=== PATIENT | male | born 1995 | race Caucasian/White ===

== ENCOUNTER 2017-03-12 00:33 | Emergency (ER) | payer OTHER ==
--- NOTE | 2017-03-12 01:27 | ERNOTE ---
Upper Extremity HPI - General Extremities Pain Location: hand: right Time Seen by Provider: 03/12/17 01:25 Source: patient, family Exam Limitations: intoxication - pt asked the same question over and over - Immun/Allergies/Home Medications Immunizations: IMMUNIZATION HX Immunizations Up to Date Yes History of Influenza Vaccine No Hx Pneumococcal Vaccination No Allergies/Adverse Reactions: Allergies Allergy/AdvReac Type Severity Reaction Status Date / Time amoxicillin [Amoxicillin] Allergy Mild Hives Verified 02/29/16 04:35 Home Medications: HOME MEDICATIONS Levothyroxine Sodium [Synthroid] 50 mcg PO DAILY 11/14/15 [Last Taken Unknown] Alprazolam [Alprazolam Xr] 1 mg PO DAILY 02/29/16 [Last Taken Unknown] HYDROcodone/ACETAMINOPHEN [Hydrocodon-Acetaminophen 5-325] 1 - 2 each PO QID PRN #20 tablet 03/12/17 [Last Taken Unknown] - History of Present Illness Occurred: just prior to arrival Location of Incident: other Severity: moderate Method of Injury: Reports: direct blow Loss of Consciousness: Reports: no loss of consciousness Other Injuries: Reports: none Review of Systems - Review of Systems Constitutional: Present: no symptoms reported EYE: Present: no symptoms reported ENT: Present: no symptoms reported Respiratory: Present: no symptoms reported Cardiology: Present: no symptoms reported Musculoskeletal: Present: See HPI Skin: Present: See HPI Neurological: Absent: numbness, tingling Endocrine: Present: no symptoms reported Hematologic/Lymphatic: Present: no symptoms reported Psych: Present: no symptoms reported - Patient's Past Medical History Patient History - Medical: Anxiety, Depression, GERD Patient History - Cardiac/Respiratory: No pertinent hx Patient History - Cancer: No Hx of Cancer Patient History - Surgical Procedures: No surgical history Patient History - Other: None - Family History Father Family History - Medical: Depression Family History - Cardiac/Respiratory: History Unknown - Social History Living Situations: home Abuse History: No History of abuse Psych History: Hx of Anxiety, Hx of Depression Smoking Status: Never smoker Do you dip or chew tobacco: Yes Patient requests Smoking Cessation Consult: No Initiate information on Smoking Cessation: No Alcohol Use: occasionally Drug Use: none - Immunizations Immunizations Up to Date: Yes Hx Pneumococcal Vaccination: No History of Influenza Vaccine: No Physical Exam - Physical Exam General Appearance: Present: wd/wn, alert, no apparent distress Respiratory: Present: no respiratory distress Extremity Exam: Present: normal except - - right dorsal hand swollen. good ROM of fingers. Able to make a complete fist Neurological Exam: Present: alert, oriented, normal mood/affect, no motor/ sensory deficits Skin Exam: Present: normal color, warm/dry, other - 2 cm laceration longitudinal between the right 4th & 5th MCPJ. Superficial just into sub-q, easily approximated Lymphatic Exam: Present: no adenopathy ED Progress - Vital Signs Vital Signs: Vital Signs 03/12/17 00:37 Temperature 36.6 C Pulse Rate 88 Respiratory 18 Rate Blood Pressure 144/84 O2 Sat by Pulse 97 Oximetry - X-Ray X-Ray #1 X-Ray: hand Interpretation: Interp. by me X-ray Comments: Mildly displaced dorsally angulated mid shaft fracture of the right 4th MC - Progress/Reassessment Chief Complaint: Upper Extremity Injury/Problem Progress Note-Subjective: 03/12/17 01:[address] Bennett. He suggests a splint and for patient to call the office in the morning for appointment next week. Procedures Right Hand Date and Time: Laceration repair of right dorsal hand Length of Repair/Wound (cm): 2 Wound's Depth/Shape: into subcutaneous, linear Wound Explored: clean Wound Intervention: irrigated w/saline Distal NVT: neuro/vasc intact Wound Repaired With: Dermabond Estimated blood loss (ml): 2 Wound Dressing: splint applied - by nursing staff Complications: Pt elijah procedure well Departure Clinical Impression: Fracture, metacarpal shaft Qualifiers: Encounter type: initial encounter Metacarpal bone: fourth Fracture type: closed Fracture alignment: displaced Laterality: right Qualified Code(s): S62.324A - Displaced fracture of shaft of fourth metacarpal bone, right hand, initial encounter for closed fracture - Departure Disposition: Home Follow Up Needed Condition: Good Instructions: Metacarpal Fracture, [id number] Additional Instructions: call orthopedics in the morning, they will make you an appointment for casting the hand Referrals: Ayaan Coronel MD [Primary Care Provider] - Se Bennett MD [Staff Physician] - Prescriptions: HYDROcodone/ACETAMINOPHEN [Hydrocodon-Acetaminophen 5-325] 1 - 2 each PO QID PRN #20 tablet PRN Reason: Pain
--- OUTSIDE RECORDS SUMMARY | 2017-03-12 01:30 | XMS REPORT | Continuity of Care Document ---
:1995 Author Organization [facility] ([facility]) Address [address] [place] [address] Phone [phone] Care Team Providers Name Role Phone Provider, No-Primary Care Primary Care Provider Unavailable Source Comments This disclosure is being made pursuant to the Care Everywhere program, applicable federal and state laws, and may not contain all informaitonavailable regarding this patient.[facility] ([facility]) Active Allergies and Adverse Reactions Not on File Current Medications Not on file Active Problems Not on file Social History Tobacco Use Types Packs/Day Years Used Date Never Assessed Plan of Care Health Maintenance Due Date Last Done Comments Hepatitis B Vaccine (1 of 3 - Primary Series) 1995 HPV Vaccine (1 of 3 - Male 3 Dose Series) 2006 Tdap Vaccine 2006 Meningococcal Vaccine (1 of 1) 2011 Lipid Disorder Screening 2013 MMR Vaccine 2013 Td Vaccine 2013 Varicella Vaccine (1 of 2 - Adult - No Evidence of 2013 Immunity) Influenza Vaccine: Seasonal (#1) 06/03/2016 Results from Last 3 Months Not on file
[2017-03-12] MEDS ORDERED: HYDROcodone/ACETAMINOPHEN 1 EACH TABLET PO ONE (01:52)
[2017-03-12] MEDS ORDERED: HYDROcodone/ACETAMINOPHEN 1 EACH TABLET ONE (01:53)
[2017-03-12 02:36] VITALS: BP 141/91
== END 2017-03-12 02:00 | disposition home or self-care (01) ==
LOC: ER 00:33
PROC: 0JQJ0ZZ Repair Right Hand Subcutaneous Tissue and Fascia, Open Approach (ICD-10-PCS; principal; 2017-03-12)
PROC: 2W3EX1Z Immobilization of Right Hand using Splint (ICD-10-PCS; 2017-03-12)
DX: S62.324A Displaced fracture of shaft of fourth metacarpal bone, right hand, initial encounter for closed fracture (principal)

== ENCOUNTER 2017-03-20 07:47 | Day surgery (SDC) | payer OTHER ==
[~2017-03-20 07:47] MED LIST: ACETAMINOPHEN 500 MG TABLET PO PRN; HYDROmorphone HCL 2 MG/ML VIAL IV PRN; MAG HYDROX/ALUMINUM HYD/SIMETH 30 ML UDC PO PRN; MAGNESIUM HYDROXIDE 30 ML UDC PO PRN; ONDANSETRON HCL/PF 2 MG/ML VIAL IV PRN; PROMETHAZINE HCL 25 MG in DEXTROSE 5 % IN WATER 50 ML IV PRN; RINGERS SOLUTION,LACTATED 1,000 ML IV PRN; ZOLPIDEM TARTRATE 5 MG TABLET PO PRN; ceFAZolin SODIUM 1 GM VIAL IV PRN; diphenhydrAMINE HCL 50 MG/ML VIAL IV PRN; oxyCODONE HCL/ACETAMINOPHEN 1 TAB TABLET PO PRN
--- OUTSIDE RECORDS SUMMARY | 2017-03-20 07:50 | XMS REPORT | Continuity of Care Document ---
:1995 Author Organization [facility] ([facility]) Address [address] [place] [address] Phone [phone] Care Team Providers Name Role Phone Provider, No-Primary Care Primary Care Provider Unavailable Source Comments This disclosure is being made pursuant to the Care Everywhere program, applicable federal and state laws, and may not contain all informaitonavailable regarding this patient.[facility] ([facility]) Active Allergies and Adverse Reactions Not on [...]
[2017-03-20] MEDS ORDERED: RINGERS SOLUTION,LACTATED 1,000 ML IV ONE ×2 (08:02→09:36)
--- NOTE | 2017-03-20 08:05 | PN ---
Progess Note - Interim Narrative: 03/20/17 07:58 H&P Update Patient seen and examined in pre-op today. He sustained a ring finger metacarpal shaft fracture while hitting a punching bag at a bar. He also sustained a ~ 1.5 laceration of the 4th dorsal webspace that was irrigated and closed with dermabond when he was seen in the ED. On exam, he has diffuse swelling over the dorsum of the hand and tenderness directly over the metacarpal shaft with palpable dorsal angulation deformity. When making a fist he has slight malrotation of the ring finger. He has a ~1.5 cm laceration over the dorsal 3rd webspace that is clean without erythema or drainage. He has brisk capillary refill and full sensation in the hand and all fingers. I counseled him about treatment options today. He has an unstable fracture of the ring metacarpal shaft with unacceptable sagittal and rotational alignment. I recommend surgical fixation of his fracture to optimize his hand function going forward. After discussion of the risks and benefits, which include but are not limited to, infection, bleeding, malunion/nonunion, malrotation, stiffness, plate irritation, delayed tendon rupture, and wound complications, he wishes to proceed with surgery. We will place him on antibiotics postoperatively as a precaution given the open laceration he sustained. Moris Singletary MD
[2017-03-20] MEDS ORDERED: ceFAZolin SODIUM 1 GM VIAL IV ONE (08:40)
--- NOTE | 2017-03-20 12:03 | OR ---
Operative Report - Dictated Report Narrative: Date: 03/20/2017 Physician: Moris Singletary M.D. House [facility] Rn: Jayesh Sue PA-C Preoperative diagnosis: Right ring metacarpal shaft fracture Postoperative diagnosis: Right ring metacarpal shaft fracture Procedure: Open reduction internal fixation of right ring metacarpal shaft fracture Anesthesia: General with regional anesthesia Complications: None Estimated blood loss: Minimal Tourniquet time: 82 Minutes at 250 mmHg Specimens: None Retained implants: Sue and nephew 2.0 mm 6 hole variable locking plate and screws Drains: None Indications: Roel Is a 21 year-old male who sustained a right ring metacarpal shaft fracture while punching a punching bag at a bar as well as a 1.5 cm laceration over the dorsum of the 3rd webspace. He was initially seen in the ED and placed in a temporary splint and the laceration was irrigated and closed with dermabond. He was not placed on any antibiotics by the ER provider. He then followed up in my clinic for evaluation. In clinic, his laceration was relatively superficial and somewhat remote from the fracture site, nonetheless, there was concern for the possibility of an open fracture. Based on the fracture pattern and amount of sagittal and rotational malalignment, as well as the concommitant laceration, I recommended open reduction internal fixation. The risks, benefits, and alternatives were discussed in clinic. The risks being bleeding, infection, nerve, tendon, blood vessel injury, malunion/nonunion , implant failure, extensor tendon rupture, and wound complications. Consent was obtained in the clinic. Procedure: After marking the correct extremity in the preoperative holding area, a timeout was performed in the operating room. IV antibiotics consisting of 2 g of Ancef were administered prior to the procedure. A well-padded tourniquet was applied to the operative upper arm. The operative arm was then prepped and draped in the usual sterile fashion. The arm was exsanguinated and the tourniquet was inflated to 250 mmHg. We first turned our attention the laceration. This was ~ 1.5 cm in length and about 4-5 mm in depth. It was extensively probed and not found to track deep. There was no drainage, no erythema, and no gross contamination. This was then copiously irrigated with normal saline and attention was turned to the fracture. 0.5% Marcaine without epinephrine was infused into the projected incision site over the ring metacarpal. An approximately 4 cm longitudinal incision was made over the ulnar aspect of the ring metacarpal. Blunt dissection and electrocautery were used to dissect down through the subcutaneous fat to the level of the extensor tendon sheath. This was incised longitudinally and the extensor tendons retracted radially. A sharp knife was then used to expose the fracture site and the metacarpal shaft more proximally and distally. The fracture site was debrided using a sharp knife and a pituitary rongeur. Traction and internal rotation was applied to the finger to help reduce the fracture and [id number] bone reduction clamps were used to obtain temporary reduction. A 6-hole 2.0 mm neutralization plate was then placed over the dorsal ulnar aspect of the metacarpal shaft. Placing 2 screws proximal and 2 screws distal to the fracture site. It was noted that we lost reduction at our fracture site and there was rotational malignment with the finger flexed. It was noted that the plate was not appropriately contoured and causing loss of reduction. All implants were then removed and the plate was appropriately contoured. The fracture was again anatomically reduced and the plate was placed back into position. We carefully replaced the screws using the same drill holes and locking screws in the distal two holes and the most proximal hole. The plate had much better contour and after placement of all four screws, our reduction was maintained at the fracture site. The fingers were flexed and the rotational malalignment was resolved. Fluoroscopic images were obtained which confirmed anatomic reduction and good position of our plate and screws. Once we felt we had adequately stabilized the fracture, the wound was thoroughly irrigated. The periosteum and deep tissue over the metacarpal was closed over the top of the plate using 4-0 Vicryl. The tourniquet was then deflated. Hemostasis was obtained using pressure and bipolar cautery. Once adequate hemostasis was in place, additional local anesthetic was placed in the skin edges, and the skin was closed with 4-0 nylon and sealed with dermabond. Sterile dressings consisting of 4 x 4 gauze, ioban dressing, soft roll, and an ulnar gutter splint was applied. All sponge, needle , blade, and instrument counts were correct prior to closing the wounds. The patient was awoken and transferred to the postanesthesia care unit in stable condition.
[2017-03-20 12:22] VITALS: BP 133/75
[2017-03-20] MEDS ORDERED: SENNOSIDES/DOCUSATE SODIUM 1 TAB TABLET PO SCH (21:00)
== END 2017-03-20 07:48 | disposition home or self-care (01) ==
LOC: AMB 07:47
PROVIDERS: ATTEND Orthopaedic Surgery
PROC: 0PSP04Z Reposition Right Metacarpal with Internal Fixation Device, Open Approach (ICD-10-PCS; principal; 2017-03-20 08:15)
DX: S62.324A Displaced fracture of shaft of fourth metacarpal bone, right hand, initial encounter for closed fracture (principal); K21.9 Gastro-esophageal reflux disease without esophagitis; F41.9 Anxiety disorder, unspecified; F17.200 Nicotine dependence, unspecified, uncomplicated; Z68.33 Body mass index [BMI] 33.0-33.9, adult; W22.8XXA Striking against or struck by other objects, initial encounter